=== PATIENT | female | born 1985 | race Caucasian/White ===

== ENCOUNTER 2018-09-05 15:59 | Outpatient (CLI) | payer BC ==
--- NOTE | 2018-09-05 19:30 | ULT ---
SONOGRAM RIGHT BREAST LIMITED: 09/05/18 HISTORY: Right breast lump. Patient is . FINDINGS: Sonographic evaluation of the superolateral aspect of the right breast in region of palpable concern shows scattered fibroglandular densities. A prominent vein, likely the lateral thoracic vein, is visu alized. No evidence of thrombosis. No solid or cystic masses. IMPRESSION: No sonographic evidence of mass at the superolateral aspect of the right breast. If symptoms persists after , complete diagnostic breast evaluation could be considered. POS: AMY
== END 2018-09-05 16:00 | disposition home or self-care (01) ==
LOC: BICULT 15:59
PROVIDERS: ATTEND Student in an Organized Health Care Education/Training Program
DX: N63.10 Unspecified lump in the right breast, unspecified quadrant (principal)

== ENCOUNTER 2019-03-01 16:51 | Day surgery (SDC) | payer BC ==
[2019-03-01 17:28] VITALS: BP 127/83; TEMP 98; BMI 37.5
--- NOTE | 2019-03-01 21:03 | PRG ---
DATE OF SERVICE: 03/01/2019 PRIMARY OB: Dr. Martinez. CHIEF COMPLAINT: Vaginal spotting. HISTORY OF PRESENT ILLNESS: The patient is a 33-year-old, G3, P2 female with an intrauterine at 36 weeks, who reports this morning after going to the bathroom, she wiped and noticed some blood. They required her to use a pad that had some minimal staining and has since resolved. The patient has had some complications with this including demise of one of the twins of this early on and gestational diabetes and was just worried that everything was okay. The patient reports that she has been having occasional uterine contractions. She says yesterday they are much worse and took her breath away. Today, they have been manageable including travel out of town for work. The patient denies any bleeding currently. She denies any leakage of fluid. She denies any recent illness, fever, fall, headache, chest pain, or shortness of breath. She has had nausea. No vomiting. No diarrhea. Denies constipation, hip problems, knee problems, or muscle weakness. Denies urinary urgency. PAST MEDICAL HISTORY: Gestational diabetes, diet controlled. PAST SURGICAL HISTORY: Negative. ALLERGIES: LATEX. MEDICATIONS: vitamins. SOCIAL HISTORY: Denies drug, alcohol, or tobacco use. OB LABS: Unavailable at time of dictation. REVIEW OF SYSTEMS: Per HPI. PHYSICAL EXAMINATION: VITAL SIGNS: Blood pressure 127/83, heart rate of 92, respiratory rate 18, saturating 98% on room air, and temperature 98.0. GENERAL: She appears to be in no acute distress. She is alert, oriented, cooperative, and pleasant to interact with. HEAD: Normocephalic and atraumatic. LUNGS: Clear to auscultation bilaterally. HEART: Regular rate and rhythm. ABDOMEN: Gravid, soft, and nontender to palpation. EXTREMITIES: Nontender and nonedematous. CERVICAL: Cervix is 1.5, 30% effaced, -2 station per nursing staff. No blood visible on her glove. heart tracing performed shows a baseline in the 120s with moderate long-term variability. Positive accelerations. No decelerations. The tocometer showing some irritability with contractions every 2 to 4 minutes, not all felt by the patient. ASSESSMENT AND PLAN: The patient is a 33-year-old with an intrauterine at 36 weeks' gestation, who has been traveling today and admittedly not had much to drink, who presents with vaginal spotting. The patient has been given reassurance. She is having contractions, but no evidence of labor today. She has been given labor precautions. Given they have been improving since yesterday, we have entertained, though opted not to proceed with outpatient steroids at this time. The patient does have follow up with her primary OB, Dr. Martinez tomorrow. At that time, they can reassess if that would be necessary. Job ID: [id number]
== END 2019-03-01 19:06 | disposition home or self-care (01) ==
LOC: L&D/OP 16:51
PROVIDERS: ATTEND Student in an Organized Health Care Education/Training Program
DX: O26.853 Spotting complicating pregnancy, third trimester (principal); O24.410 Gestational diabetes mellitus in pregnancy, diet controlled; O47.03 False labor before 37 completed weeks of gestation, third trimester; Z3A.36 36 weeks gestation of pregnancy
CPT/HCPCS: 99282

== ENCOUNTER 2019-03-12 09:42 | Inpatient (IN) | payer BC ==
[2019-03-12 10:37] VITALS: BMI 37.3
[2019-03-12] MEDS ORDERED: Ondansetron PF 4 MG/2 ML Vial IVP PRN ×3 (13:02→21:49)
[2019-03-12] MEDS ORDERED: Acetaminophen 500 MG TAB PO PRN (13:02)
[2019-03-12] MEDS ORDERED: HYDROcodone/Acetaminophen 5/325 mg Tablet PO PRN ×3 (13:02→21:49)
[2019-03-12] MEDS ORDERED: Carboprost 250 MCG/ML AMP IM PRN (13:02)
[2019-03-12] MEDS ORDERED: Butorphanol Tartrate 1 MG/ML VIAL SLOW IVP PRN (13:02)
[2019-03-12] MEDS ORDERED: Lidocaine 1% (PF) 30 ML VIAL SC PRN (13:02)
[2019-03-12] MEDS ORDERED: Methylergonovine 0.2 MG/ML VIAL IM PRN (13:02)
[2019-03-12] MEDS ORDERED: Promethazine HCl 25 MG/ML VIAL IM PRN ×2 (13:02→16:54)
[2019-03-12] MEDS ORDERED: Ibuprofen 800 MG TAB PO PRN (13:02)
[2019-03-12] MEDS ORDERED: Misoprostol 200 MCG TAB PR PRN (13:02)
[2019-03-12] MEDS ORDERED: Diphenoxylate HCl/Atropine Tablet PO PRN (13:02)
[2019-03-12] MEDS ORDERED: NS w/ Oxytocin 10 units 500 ML IV SCH (13:15)
[2019-03-12] MEDS ORDERED: Penicillin G Potassium 5 MILL.UNITS in Sodium Chloride 0.9% 100 ML IVPB SCH (13:15)
[2019-03-12] MEDS ORDERED: Penicillin G Potassium 5 MILL.UNITS VIAL ONE (13:31)
[2019-03-12] MEDS ORDERED: Sodium Chloride 0.9% 100 ML ONE (13:32)
[2019-03-12] MEDS: Lactated Ringer's 1,000 ML IV SCH ×2 (13:42→15:36)
[2019-03-12] MEDS: Penicillin G 2.5 MILL.units 2.5 MILL.UNITS in Premix Bag 1 BAG IVPB SCH ×3 (13:45→22:40)
[2019-03-12 14:06] LABS: Hemoglobin 12.2 g/dL (12.0-16.0); Mean Corpuscular HGB CONC 33.5 g/dL (32.0-36.0); Mean Corpuscular Hemoglobin 28.6 pg (27.0-31.0); Mean Corpuscular Volume 85.3 fL (78.0-98.0); Mean Platelet Volume 8.6 fL (7.4-10.4); Platelet Count 249 thou/uL (130-400); Red Blood Cell (RBC) Count 4.27 mill/uL (4.20-5.40); White Blood Cell (WBC) Count 8.6 thou/uL (4.8-10.8)
--- NOTE | 2019-03-12 14:24 | PDOC.LDHP ---
Labor and Delivery H&P Chief complaint: contractions HPI: 33yo at 37w4d by LMP here for version due to transverse presentation. On bedside sono pt is cephalic and nadia painfully every 5 min, SVE change from 4-->5cm over 2 hr. No LOF VB. Current gestational age (weeks): 37 Due date: 03/29/19 Dating criteria: last menstrual period Grav: 3 Para: 2 Current complications: gestational diabetes (diet controlled) Abnormal US findings: Yes (S>D EFW 98%ile) Past Medical History: denies Current medications: pre-jr vitamins Previous surgical history: none Allergies/Adverse Reactions: Allergies Allergy/AdvReac Type Severity Reaction Status Date / Time Latex, Natural Rubber Allergy Verified 03/12/19 10:26 Social history: none - Physical Exam Vital signs reviewed and normal: yes General: NAD, breathing through contractions Heart: RRR Lungs: CTAB Abdomen: gravid Extremeties: no edema FHT: category 1 (2) Herminie contractions every: -3min - Vaginal Exam cm dilated: 5 Effacement: 75% Station: -3 - OB Labs Blood type: A RH: positive Antibody Screen: negative HIV: negative RPR: negative HEPSAg: negative 1 hour GCT: positive 3 hour GTT: positive GBS: positive Urine drug screen: negative Rubella: immune - Assessment L&D Assessment: term patient in labor - Plan Plan: admit to L&D, labor augmentation if indicated, GBS antibiotic prophylaxis , informed consent obtained, anesthesia consult for pain management -: accuchecks for GDM
[2019-03-12] MEDS ORDERED: Fentanyl 4 mcg/Bup 0.1% Cadd 100 ML ONE (14:37)
[2019-03-12 14:47] LABS: HBSAg Index 0.34 S/CO (0-0.99); Hep B Surf Ag Non-Reactive S/CO (NonReactive); Syphilis Antibody Nonreactive (Nonreactive); Syphilis Antibody Index 0.03 S/CO (<1.00 Non-Reactive)
[2019-03-12] MEDS ORDERED: Fentanyl 100 MCG/2 ML VIAL ONE ×2 (14:59→15:36)
[2019-03-12] MEDS ORDERED: Bupivacaine/Epinephrine 0.25% 30 ML VIAL ONE (15:00)
[2019-03-12] MEDS ORDERED: ePHEDrine/0.9% NaCl/PF SYRINGE 50 mg/10 ml SLOW IVP PRN (16:54)
[2019-03-12] MEDS ORDERED: Acetaminophen 325 MG TAB PO PRN (16:54)
[2019-03-12] MEDS ORDERED: Naloxone HCl 0.4 mg/ml Vial IVP PRN ×2 (16:54)
[2019-03-12] MEDS ORDERED: Lactated Ringer's 500 ML IV PRN (16:54)
[2019-03-12] MEDS ORDERED: diphenhydrAMINE 50 MG/ML VIAL IVP PRN (16:54)
[2019-03-12] MEDS ORDERED: Communication Order-Pharmacy FS SCH (17:00)
[2019-03-12] MEDS ORDERED: Fentanyl 4 mcg/Bupivacaine 0.1% Cassette 100 ML EPIDURAL SCH (17:00)
[2019-03-12] MEDS ORDERED: Penicillin G 2.5 MILL.units 50 ML ONE (18:20)
--- NOTE | 2019-03-12 19:55 | PDOC.OPDEL ---
OB Operative/Delivery Note Delivery Dr/Surgeon: Juan Assist: n/a Pre-Delivery Diagnosis: active labor Procedure/Post Delivery Dx: spontaneous vaginal delivery Weeks gestation: 37 Anesthesia: epidural - Findings A Sex: female - 1 min: 8 - 5 min: 9 - Additional Findings/Plan Placenta delivered: spontaneous Repaired Obstetrical Laceration: none Estimated blood loss: 200 Post delivery plan: routine recovery
[2019-03-12] MEDS: NS / Oxytocin 40 units/1000ml 1,000 ML IV PRN ×2 (20:21→21:43)
[2019-03-12] MEDS ORDERED: Lanolin Ointment 7 GM TUBE TOP PRN (21:49)
[2019-03-12] MEDS ORDERED: diphenhydrAMINE 25 MG CAP PO PRN (21:49)
[2019-03-12] MEDS ORDERED: Bisacodyl 10 MG SUPP PR PRN (21:49)
[2019-03-12] MEDS ORDERED: Preparation H Ointment 28 GM TUBE PR PRN (21:49)
[2019-03-12] MEDS ORDERED: Milk Of Magnesia 30 ML UDCUP PO PRN (21:49)
[2019-03-12] MEDS ORDERED: NS / Oxytocin 40 units/1000ml 1,000 ML IV SCH (21:49)
[2019-03-12] MEDS ORDERED: Benzocaine-Menthol 82.5 ML CAN TOP PRN (21:49)
[2019-03-12] MEDS: Docusate Calcium (SURFAK) 240 MG CAP PO SCH (22:01)
[2019-03-12] MEDS: Ibuprofen 800 MG TAB PO SCH (22:01)
[2019-03-13] MEDS: Ibuprofen 800 MG TAB PO SCH ×3 (05:33→21:41)
[2019-03-13] MEDS ORDERED: Adacel (T-DAP) 0.5 ML SYRINGE IM ONE (09:00)
[2019-03-13] MEDS: Docusate Calcium (SURFAK) 240 MG CAP PO SCH ×2 (09:40→21:41)
[2019-03-13] MEDS: Ferrous Sulfate 325 MG TAB PO SCH ×2 (09:40→18:50)
[2019-03-13] MEDS: Prenatal Vitamin 1 TAB PO SCH (09:40)
--- NOTE | 2019-03-13 13:28 | PDOC.PP ---
Post Progress Note Post Day #: 1 PO intake tolerated: yes Flatus: yes Ambulation: yes Vital Signs (12 hours) Temp Pulse Resp BP Pulse Ox 03/13/19 11:13 98.3 F 92 20 109/66 03/13/19 08:23 98.2 F 84 20 114/69 97 03/13/19 03:50 98.4 F 81 20 113/68 97 Weight Weight 231 lb - Physical Examination General: NAD Respiratory: non-labored breathing Abdominal: no distention, appropriately TTP Fundus firm & at: umb Extremities: negative homans (B) Skin: no rash Neurological: no gross focal deficits Psychiatric: normal affect Result Diagrams: 03/12/19 13:53 Additional Labs: Post Labs Blood Type A POSITIVE 03/12/19 13:53 Hep Bs Antigen Non-Reactive S/CO (NonReactive) 03/12/19 13:53 - Assessment/Plan PPD1 s/p TSVD VSSAF Doing well, pain controlled, lochia appropriate Rh pos RImm Cont PP care, home tomorrow.
[2019-03-14] MEDS: Ibuprofen 800 MG TAB PO SCH ×2 (06:29→14:19)
--- NOTE | 2019-03-14 07:57 | PDOC.PP ---
Post Progress Note Post Day #: 2 PO intake tolerated: yes Flatus: yes Ambulation: yes Vital Signs (12 hours) Temp Pulse Resp BP Pulse Ox 03/14/19 00:21 98.0 F 74 18 124/64 03/13/19 20:34 98.3 F 92 20 134/77 99 Weight Weight 231 lb - Physical Examination General: NAD Respiratory: non-labored breathing Abdominal: + bowel sounds, no distention, appropriately TTP Fundus firm & at: 1 cm below umb Extremities: negative homans (B) Neurological: no gross focal deficits Psychiatric: A&Ox3, normal affect Result Diagrams: 03/12/19 13:53 Additional Labs: Post Labs Blood Type A POSITIVE 03/12/19 13:53 Hep Bs Antigen Non-Reactive S/CO (NonReactive) 03/12/19 13:53 (1) Spontaneous vaginal delivery Code(s): O80 - ENCOUNTER FOR FULL-TERM UNCOMPLICATED DELIVERY Status: Acute - Assessment/Plan PPD2 s/p TSVD VSSAF Doing well, pain controlled, lochia appropriate Rh pos RImm Rx for ibuprofen sent to pharmacy. Plain to discharge today. F/u with Dr. Martinez in 6 weeks. Discharge planning discussed with patient.
[2019-03-14 08:25] VITALS: BP 134/76; TEMP 98.2
[2019-03-14] MEDS: Docusate Calcium (SURFAK) 240 MG CAP PO SCH (11:31)
[2019-03-14] MEDS: Prenatal Vitamin 1 TAB PO SCH (11:31)
[2019-03-14] MEDS: Ferrous Sulfate 325 MG TAB PO SCH (11:35)
== END 2019-03-14 19:21 | disposition home or self-care (01) | DRG 807 ==
LOC: L&D/OP 09:42 → L&D 13:20 → 3SW 21:56
PROVIDERS: ADMIT Student in an Organized Health Care Education/Training Program; ATTEND Student in an Organized Health Care Education/Training Program
PROC: 10E0XZZ Delivery of Products of Conception, External Approach (ICD-10-PCS; principal; 2019-03-12)
DX: O24.420 Gestational diabetes mellitus in childbirth, diet controlled (principal); Z37.0 Single live birth; O32.2XX0 Maternal care for transverse and oblique lie, not applicable or unspecified; O99.824 Streptococcus B carrier state complicating childbirth; Z3A.37 37 weeks gestation of pregnancy; Z91.040 Latex allergy status
CPT/HCPCS: 36415; 36416; 51702; 76815; 85027; 86780; 86850; 86900; 86901; 87340; 99285; J2001; J2540; J2590; J3010; J3490